=== PATIENT | male | born 1970 | race Two or more races ===

== ENCOUNTER 2019-09-27 08:04 | Outpatient (CLI) | payer OTHER | END 2019-09-27 08:11 | disposition home or self-care (01) | LOC: SONOGRAMA 08:04 → MAMO-SONO 08:15 | DX: R10.84 Generalized abdominal pain (principal) ==

== ENCOUNTER 2021-02-16 08:38 | Outpatient (CLI) | payer OTHER | END 2021-02-16 08:54 | disposition home or self-care (01) | LOC: SONOGRAMA 08:38 | PROVIDERS: ATTEND Internal Medicine Gastroenterology | DX: R10.84 Generalized abdominal pain (principal) ==

== ENCOUNTER 2022-02-16 08:02 | Outpatient (CLI) | payer OTHER | END 2022-02-16 08:18 | disposition home or self-care (01) | LOC: SONOGRAMA 08:02 | PROVIDERS: ATTEND Family Medicine Adult Medicine | DX: K82.8 Other specified diseases of gallbladder (principal) ==

== ENCOUNTER 2022-05-02 08:58 | Outpatient (CLI) | payer OTHER | END 2022-05-02 08:59 | disposition home or self-care (01) | LOC: LAB 08:58 | PROVIDERS: ATTEND Radiology Diagnostic Radiology | DX: R10.9 Unspecified abdominal pain (principal) ==

== ENCOUNTER 2022-05-03 07:57 | Outpatient (CLI) | payer OTHER | END 2022-05-03 08:10 | disposition home or self-care (01) | LOC: TOM 07:57 | PROVIDERS: ATTEND Internal Medicine Gastroenterology | DX: R10.9 Unspecified abdominal pain (principal); K80.20 Calculus of gallbladder without cholecystitis without obstruction; K82.4 Cholesterolosis of gallbladder ==

== ENCOUNTER 2022-08-16 07:29 | Outpatient (CLI) | payer OTHER | END 2022-08-16 08:07 | disposition home or self-care (01) | LOC: MRI 07:29 | PROVIDERS: ATTEND Internal Medicine Gastroenterology | DX: R93.5 Abnormal findings on diagnostic imaging of other abdominal regions, including retroperitoneum (principal); K85.90 Acute pancreatitis without necrosis or infection, unspecified; R74.8 Abnormal levels of other serum enzymes | CPT/HCPCS: 74181 ==

== ENCOUNTER 2022-09-17 19:56 | Emergency (ER) | payer OTHER ==
[~2022-09-17] VITALS: Ht 180.3 cm; Wt 88.5 kg
[2022-09-17] MEDS ORDERED: KETO10TA2 PO (23:48)
== END 2022-09-18 00:11 | disposition home or self-care (01) ==
LOC: ER 19:56
DX: R30.0 Dysuria (principal); K80.50 Calculus of bile duct without cholangitis or cholecystitis without obstruction

== ENCOUNTER 2022-09-18 18:43 | Inpatient (IN) | payer OTHER ==
[~2022-09-18] VITALS: Ht 180.3 cm; Wt 86.2 kg
[~2022-09-18 18:43] MED LIST: KETO10TA2 PO
--- NOTE | 2022-09-18 19:08 | NUR ---
SE TRECIBE PTE MASCULINO DE 52 ANOS ALERTA Y ORIENTADO X3 QUIEN AL MOMENTO REFIERE DOLOR ABDOMINAL INTENSO EN LOS 4 CUADRANTES. PTE REFIERE 4 VOMITOS EN LAS ULTIMAS 24 HORAS. SE MONITOREAN S/V Y SE UBICA EN SAE 11
--- NOTE | 2022-09-18 20:44 | NUR ---
PTE EVALUADO POR MD GAR ORDENA TX MED S EEUDC A APTE SOBRE EL MSIO Y REFEIRE ENTENDER. SE EJECUTAN ORDENES BAJO MEDIDAS ACEPTICAS. PTE PEND A RESULTADOS DE LAB E IMAGENES.
--- NOTE | 2022-09-18 23:51 | NUR ---
SE RECOBE PACIENTE MASCULINO DE 52 ANOS DE EDAD UBICADO EN AREA DE CRITICO EN CAMA CON BARANDAS ELAVDAS. PACIENTE AL MOMENTO ESTA POR ER Y CONSULTADO.
--- NOTE | 2022-09-19 00:57 | NUR ---
SE ADMINISTRA MEDICAMNETO POR ORDEN MEDICA ZOSYN 3.375MG SE ORIENTA A PACIENTE SOBRE USO Y EFECTO, PACIENTE REFIERE ENTENDER. EN ESPERA DE PROXIMA DOSIS A LAS 6:00 AM
[2022-09-30] MEDS ORDERED: INTESTINEX680 M1 PO (11:21)
[2022-09-30] MEDS ORDERED: PEPCID AC20 MG PO (11:21)
== END 2022-09-30 16:51 | disposition home or self-care (01) | DRG 439 ==
LOC: ER 18:43 → ICU-2 09-19 06:55 → SURH 09-19 06:55 → ICU 09-20 15:35 → SURG 09-22 13:45 → SURH 09-24 14:27
PROVIDERS: Internal Medicine Gastroenterology; ADMIT Internal Medicine; ATTEND Internal Medicine
PROC: BW21ZZZ Computerized Tomography (CT Scan) of Abdomen and Pelvis (ICD-10-PCS; 2022-09-23)
PROC: 0FJD8ZZ Inspection of Pancreatic Duct, Via Natural or Artificial Opening Endoscopic (ICD-10-PCS; principal; 2022-09-29 07:00)
DX: K85.90 Acute pancreatitis without necrosis or infection, unspecified (principal); N17.9 Acute kidney failure, unspecified; D72.829 Elevated white blood cell count, unspecified; K85.10 Biliary acute pancreatitis without necrosis or infection; K80.50 Calculus of bile duct without cholangitis or cholecystitis without obstruction

== ENCOUNTER 2023-05-23 07:29 | Outpatient (CLI) | payer OTHER ==
[~2023-05-23 07:29] MED LIST changes: +INTESTINEX680 M1 PO; +PEPCID AC20 MG PO
== END 2023-05-23 07:47 | disposition home or self-care (01) ==
LOC: SONOGRAMA 07:29
PROVIDERS: ATTEND Internal Medicine Nephrology
DX: N18.30 Chronic kidney disease, stage 3 unspecified (principal)

== ENCOUNTER 2024-03-26 13:12 | Emergency (ER) | payer OTHER ==
[~2024-03-26] VITALS: Ht 185.4 cm; Wt 76.7 kg
[2024-03-26] MEDS ORDERED: FAMOtidine 10 MG/ML (4ML VIAL) IV STA (14:28)
[2024-03-26] MEDS ORDERED: METOCLOPRAMIDE HCL 10 MG in DEXTROSE 5 % IN WATER 50 ML IV ONE (14:30)
[2024-03-26] MEDS ORDERED: METOCLOPRAMIDE HCL 5 MG/ML VIAL ONE (14:35)
[2024-03-26] MEDS ORDERED: FAMOtidine 200mg/20ml VIAL ONE ×2 (14:36→15:13)
[2024-03-26] MEDS ORDERED: ONDANSETRON HCL 2 MG/ML VIAL ONE (15:12)
[2024-03-26 15:19] LABS: HEMATOCRIT 42.2 % (39.0-48.0); HEMOGLOBIN 14.3 g/dL (13-16.00); MEAN CELL VOLUME 86.7 fL (80.0-100.00); MEAN CORPUSCULAR HEMOGLOBIN 29.3 pg (27.00-32.0); MEAN CORPUSCULAR HGB CONC 33.8 g/dl (32.0-36.0); PLATELET COUNT 264 K/uL (150-450); RED BLOOD COUNT 4.87 M/uL (4.00-6.00)
[2024-03-26 15:30] LABS: URINE APPEARANCE Clear; URINE BILIRRUBIN Negative (NEGATIVE); URINE BLOOD Negative; URINE COLOR Yellow; URINE GLUCOSE Negative (NEGATIVE); URINE LEUKOCYTE Negative; URINE NITRATE Negative; URINE PROTEIN Negative (NEGATIVE)
[2024-03-26 15:31] LABS: URINE RBC 2.2 uL (0.0-20.8)
[2024-03-26 15:36] LABS: URINE BACTERIA 1.2 uL (0.0-1933)
[2024-03-26 15:56] LABS: ALBUMIN 4.5 gm/dL (3.4-5.0); BILIRUBIN TOTAL 1.65 mg/dL (0.3-1.2); BILIRUBIN,CONJUGATED 0.28 mg/dL (0.0-0.2); BILIRUBIN,UNCONJUGATED 1.37 mg/dL (0.0-0.6); CALCIUM 9.6 mg/dL (8.5-10.1); CREATININE SERUM 1.22 mg/dL (0.70-1.30); GFR 62.38; POTASSIUM 4.23 mEq/L (3.5-5.1); TOTAL PROTEIN 7.8 gm/dL (6.4-8.2)
== END 2024-03-26 16:19 | disposition home or self-care (01) ==
LOC: ER 13:13
PROVIDERS: General Practice
DX: K29.70 Gastritis, unspecified, without bleeding (principal); R10.9 Unspecified abdominal pain

== ENCOUNTER 2024-04-14 07:49 | Outpatient (CLI) | payer OTHER | END 2024-04-14 07:50 | disposition home or self-care (01) | LOC: SONOGRAMA 07:49 | PROVIDERS: ATTEND Internal Medicine Gastroenterology | DX: R10.9 Unspecified abdominal pain (principal) ==

== ENCOUNTER 2024-06-11 06:56 | Emergency (ER) | payer OTHER ==
[~2024-06-11] VITALS: Ht 180.3 cm; Wt 88.5 kg
[2024-06-11] MEDS ORDERED: PEPCID AC20 MG PO (08:31)
== END 2024-06-11 08:34 | disposition home or self-care (01) ==
LOC: ER 06:57
DX: K29.70 Gastritis, unspecified, without bleeding (principal)

== ENCOUNTER 2024-06-17 07:14 | Outpatient (CLI) | payer OTHER | END 2024-06-17 07:26 | disposition home or self-care (01) | LOC: MRI 07:14 | PROVIDERS: ATTEND Internal Medicine Gastroenterology | DX: R93.5 Abnormal findings on diagnostic imaging of other abdominal regions, including retroperitoneum (principal); K85.90 Acute pancreatitis without necrosis or infection, unspecified; R74.8 Abnormal levels of other serum enzymes | CPT/HCPCS: 74181 ==

== ENCOUNTER 2024-07-17 07:32 | Day surgery (SDC) | payer OTHER ==
[2024-07-09 10:14] LABS: HEMATOCRIT 42.9 % (39.0-48.0); HEMOGLOBIN 14.9 g/dL (13-16.00); MEAN CORPUSCULAR HGB CONC 34.8 g/dl (32.0-36.0); PLATELET COUNT 250 K/uL (150-450); RED BLOOD COUNT 4.99 M/uL (4.00-6.00); RED CELL DISTRIBUTION WIDTH 13.5 % (11.5-14.5)
[2024-07-09 11:29] LABS: ALBUMIN 4.4 gm/dL (3.4-5.0); BILIRUBIN TOTAL 1.76 mg/dL (0.3-1.2); CALCIUM 9.7 mg/dL (8.5-10.1); CREATININE SERUM 1.21 mg/dL (0.70-1.30); GFR 62.97; GLOBULINA 3.3 G/DL (2.4-3.5); POTASSIUM 4.31 mEq/L (3.5-5.1); TOTAL PROTEIN 7.7 gm/dL (6.4-8.2)
[2024-07-17] MEDS ORDERED: SUGAMMADEX SODIUM 200 MG/2 ML VIAL IV ONE (13:45)
[2024-07-17] MEDS ORDERED: IOVERSOL 320 MG/ML - 50 ML VIAL IV ONE (13:45)
[2024-07-17] MEDS ORDERED: GLUCAGON 1 MG VIAL IV ONE (13:45)
== END 2024-07-17 14:55 | disposition home or self-care (01) ==
LOC: AMB-ERCP 07:32
PROVIDERS: ATTEND Internal Medicine Gastroenterology
DX: K80.50 Calculus of bile duct without cholangitis or cholecystitis without obstruction (principal)

== ENCOUNTER 2025-07-10 07:22 | Outpatient (CLI) | payer OTHER | END 2025-07-10 07:31 | disposition home or self-care (01) | LOC: TOM 07:22 | PROVIDERS: ATTEND Internal Medicine Gastroenterology | DX: R10.9 Unspecified abdominal pain (principal) ==